=== PATIENT | male | born 1970 | race Caucasian/White ===

== ENCOUNTER 2022-04-01 07:25 | Day surgery (SDC) | payer OTHER ==
[2022-04-01] VITALS (7 sets, daily range): BP systolic 113–125; BP diastolic 63–79; PULSE 64–84; TEMP 97.2–97.7
[~2022-04-01] VITALS: Ht 175.3 cm; Wt 99.1 kg
[~2022-04-01 07:25] MED LIST: CLARITIN 1010 MG/TAB PO; FLONASEALLERGY NS
[2022-04-01] MEDS ORDERED: NORCO 325 MG-51 TAB PO (10:26)
--- NOTE | 2022-04-01 12:15 | NUR ---
1045 RETURNS TO ROOM 4 PER CART. AWAKE, ALERT RESP CLEAR, UNLABORED. HOB ELEVATED 45 DEGREES. VITAL SIGNS OBTAINED. ABD ROUND, SOFT, INCISIONS X 4 SITES INTACT WITHOUT DRAINAGE. DENIES PAIN. CALL LIGHT AT SIDE. IN ROOM 1100 DOZES AT INTERVALS. AROUSES EASILY TO VERBAL STIMULI. 1115 AWAKE, ALERT. TOLERATES PO JUICE AND MUFFIN WITHOUT NAUSEA. 1128 DISCHARGE INSTRUCTIONS REVIEWED. PATIENT AND VERBALIZE UNDERSTANDING. COPY PROVIDED IN DISCHARGE FOLDER. 1145 AWAKE, ALERT. NO CHANGE TO SURGICAL SITE. DENIES NEED FOR PAIN MED. 1200 SITS ON EDGE OF CART. DRESSES WITH AT SIDE. 1208 AMBULATES TO BATHROOM WITH STANDBY ASSIST. VOIDS WITHOUT DIFFICULTY
== END 2022-04-01 12:15 | disposition home or self-care (01) ==
LOC: SDCO 07:25
DX: K38.8 Other specified diseases of appendix (principal)
CPT/HCPCS: J0330; J0690; J1100; J1885; J2250; J2370; J2405; J2704; J3010; J7120